=== PATIENT | female | born 1945 | race Caucasian/White ===

== ENCOUNTER 2018-01-11 08:08 | Day surgery (SDC) | payer MEDICARE, BC, SELFPAY ==
--- NOTE | 2018-01-08 15:01 | W.PIPPEYE ---
History of Present Illness Chief Complaint: Progressive decreased vision, right eye Narrative: The patient is a 71-year-old lady who presented with complaints of progressive decreased vision in her right eye. She notes significant blurry foggy and cloudy vision in the right eye compared to the left and has difficulty reading a map. On examination she was noted to have significant diffuse cortical cataract with mild nuclear cataract in the right eye with visual acuity of 20/70. The option of cataract surgery was offered to the patient and she wished to proceed. NOTE: The Chief Complaint, HPI, Past Medical History, Past Surgical History, Family History, Social History, Medications, and complete Ophthalmic Exam with detailed Assessment and Plan have already been documented in the patient's outpatient ophthalmic record and are not covered again in detail here. [facility] Medical History Abnormal EKG Anemia Arm pain Arthralgia CAD (coronary artery disease) Cataracts, bilateral Chronic neck pain DJD (degenerative joint disease) of cervical spine GERD (gastroesophageal reflux disease) History of hypothyroidism Hyperhidrosis Hyperlipidemia Hypertension Injury due to fall Irritable bowel syndrome Myoneural disorder, unspecified Osteoporosis Palpitations Tension headache Urinary retention Uterine fibroid Vitamin D deficiency Weakness Weight loss Social History Smoking/Tobacco Use Status: Never [place] [facility] [place] Home Medications Medication Instructions Recorded Confirmed Type cholecalciferol (vitamin D3) 1,000 unit PO DAILY 08/31/17 01/07/18 History cyclobenzaprine 10 mg PO PRN 08/31/17 01/07/18 History famotidine 20 mg PO BID tab-cap 08/31/17 01/07/18 History glucosamine sulfate 2KCl 2,000 mg PO DAILY 08/31/17 01/07/18 History multivitamin [Daily Multiple] 1 ea PO DAILY 08/31/17 01/07/18 History aspirin [Aspir-Low] 81 mg PO DAILY 01/07/18 01/07/18 History atorvastatin 20 mg PO DAILY 01/07/18 01/07/18 History fexofenadine [Wal-Fex Allergy] 180 mg PO DAILY PRN 01/07/18 01/07/18 History furosemide [Lasix] 20 mg PO DAILY 01/07/18 01/07/18 History metoprolol succinate 50 mg PO DAILY 01/07/18 01/07/18 History Allergies Allergy/AdvReac Type Severity Reaction Status Date / Time prochlorperazine Allergy Severe Anaphylaxsi Unverified 01/07/18 10:38 [From Compazine] s prochlorperazine edisylate Allergy Severe Anaphylaxsi Unverified 01/07/18 10:38 [From Compazine] s prochlorperazine maleate Allergy Severe Anaphylaxsi Unverified 01/07/18 10:38 [From Compazine] s codeine AdvReac Intermediate Nausea Unverified 01/07/18 10:38 Exam OCULAR EXAM:: Visual acuity at distance: Best corrected 20/60 right eye, 20/30 left eye Pupils: Pupils equal, round, and reactive without afferent pupillary defect IOP: 14 OD, 12 OS Extraocular Motility: Normal Pertinent Slit Lamp Findings: Significant for pupils dilating to 7 mm OU. 2+ diffuse cortical haze in the right eye with mild nuclear cataract. In the left eye there is a 1+ nuclear with 1+ cortical cataract. Dilated Funduscopic Examination: Disc cupping is 0.6 OU with nilesh-papillary atrophy. The optic nerves have good perfusion and normal color. The retinal vasculature is normal without significant tortuosity or abnormality. The maculas are normal in appearance with normal contour and foveal reflex appropriate for age. The peripheral retina and vitreous are normal. BRIGHTNESS ACUITY TESTING (BAT):: Off right eye 20/70 Low: 20/80 Medium: 20/100 High: 20/300 Assessment and Plan (1) Nuclear sclerotic cataract of right eye: Current visit: No Status: Acute Assessment: Visually significant cataract, right eye. Plan: Cataract extraction with intraocular lens implantation, right eye (2) Cortical cataract of right eye: Current visit: No Status: Acute Assessment: Visually significant cataract, right eye. Plan: Cataract extraction with intraocular lens implantation, right eye Note: NOTE:: The details of the planned surgery, including the risks, indications,limitations,expectations,outcome and possible complications were explained to the patient. The patient understands the complications including, but not limited to: infection, hemorrhage, posterior dislocation of the lens or nuclear fragments which may require the intervention of a vitreoretinal surgeon, possible loss of the eye, or from anesthetic complications. The patient has been made aware of the option of not having surgery, that vision following surgery may not be equal to that prior to surgery, and that the planned surgery may not achieve the intended results. Following this discussion, which the patient appeared to understand, the patient wishes to proceed with cataract surgery with lens implantation of the affected eye to improve and maximize vision.
--- NOTE | 2018-01-08 15:05 | POEE_ITS ---
History of Present Illness Chief Complaint: Progressive decreased vision, right eye Narrative: The patient is a 71-year-old lady who presented with complaints of progressive decreased vision in her right eye. She notes significant blurry foggy and cloudy vision in the right eye compared to the left and has difficulty reading a map. On examination she was noted to have significant diffuse cortical cataract with mild nuclear cataract in the right eye with visual acuity of 20/70. The option of cataract surgery was offered to the patient and she wished to proceed. NOTE: The Chief Complaint, HPI, Past Medical History, Past Surgical History, Family History, Social History, Medications, and complete Ophthalmic Exam with detailed Assessment and Plan have already been documented in the patient's outpatient ophthalmic record and are not covered again in detail here. [facility] Medical History Abnormal EKG Anemia Arm pain Arthralgia CAD (coronary artery disease) Cataracts, bilateral Chronic neck pain DJD (degenerative joint disease) of cervical spine GERD (gastroesophageal reflux disease) History of hypothyroidism Hyperhidrosis Hyperlipidemia Hypertension Injury due to fall Irritable bowel syndrome Myoneural disorder, unspecified Osteoporosis Palpitations Tension headache Urinary retention Uterine fibroid Vitamin D deficiency Weakness Weight loss Social History Smoking/Tobacco Use Status: Never [place] [facility] [place] Home Medications Medication Instructions Recorded Confirmed Type cholecalciferol (vitamin D3) 1,000 unit PO DAILY 08/31/17 01/07/18 History cyclobenzaprine 10 mg PO PRN 08/31/17 01/07/18 History famotidine 20 mg PO BID tab-cap 08/31/17 01/07/18 History glucosamine sulfate 2KCl 2,000 mg PO DAILY 08/31/17 01/07/18 History multivitamin [Daily Multiple] 1 ea PO DAILY 08/31/17 01/07/18 History aspirin [Aspir-Low] 81 mg PO DAILY 01/07/18 01/07/18 History atorvastatin 20 mg PO DAILY 01/07/18 01/07/18 History fexofenadine [Wal-Fex Allergy] 180 mg PO DAILY PRN 01/07/18 01/07/18 History furosemide [Lasix] 20 mg PO DAILY 01/07/18 01/07/18 History metoprolol succinate 50 mg PO DAILY 01/07/18 01/07/18 History Allergies Allergy/AdvReac Type Severity Reaction Status Date / Time prochlorperazine Allergy Severe Anaphylaxsi Unverified 01/07/18 10:38 [From Compazine] s prochlorperazine edisylate Allergy Severe Anaphylaxsi Unverified 01/07/18 10:38 [From Compazine] s prochlorperazine maleate Allergy Severe Anaphylaxsi Unverified 01/07/18 10:38 [From Compazine] s codeine AdvReac Intermediate Nausea Unverified 01/07/18 10:38 Exam OCULAR EXAM:: Visual acuity at distance: Best corrected 20/60 right eye, 20/30 left eye Pupils: Pupils equal, round, and reactive without afferent pupillary defect IOP: 14 OD, 12 OS Extraocular Motility: Normal Pertinent Slit Lamp Findings: Significant for pupils dilating to 7 mm OU. 2+ diffuse cortical haze in the right eye with mild nuclear cataract. In the left eye there is a 1+ nuclear with 1+ cortical cataract. Dilated Funduscopic Examination: Disc cupping is 0.6 OU with nilesh-papillary atrophy. The optic nerves have good perfusion and normal color. The retinal vasculature is normal without significant tortuosity or abnormality. The maculas are normal in appearance with normal contour and foveal reflex appropriate for age. The peripheral retina and vitreous are normal. BRIGHTNESS ACUITY TESTING (BAT):: Off right eye 20/70 Low: 20/80 Medium: 20/100 High: 20/300 Assessment and Plan (1) Nuclear sclerotic cataract of right eye: Current visit: No Status: Acute Assessment: Visually significant cataract, right eye. Plan: Cataract extraction with intraocular lens implantation, right eye (2) Cortical cataract of right eye: Current visit: No Status: Acute Assessment: Visually significant cataract, right eye. Plan: Cataract extraction with intraocular lens implantation, right eye Note: NOTE:: The details of the planned surgery, including the risks, indications, limitations,expectations,outcome and possible complications were explained to the patient. The patient understands the complications including, but not limited to: infection, hemorrhage, posterior dislocation of the lens or nuclear fragments which may require the intervention of a vitreoretinal surgeon, possible loss of the eye, or from anesthetic complications. The patient has been made aware of the option of not having surgery, that vision following surgery may not be equal to that prior to surgery, and that the planned surgery may not achieve the intended results. Following this discussion, which the patient appeared to understand, the patient wishes to proceed with cataract surgery with lens implantation of the affected eye to improve and maximize vision.
[2018-01-11 08:30] VITALS: BP 148/71; PULSE 73; RESP 16; TEMP 36.5; O2SAT 97
[2018-01-11] MEDS: Balanced Salt Soln.-PLUS 500 ML BAG (09:43)
[2018-01-11] MEDS: Povidone-Iodine Ophth 30 ML BTL (09:43)
[2018-01-11] MEDS: Lidocaine 2% Jelly 6 ML SYR (09:43)
[2018-01-11] MEDS: Lidocaine 1% Pres-Free 5 ML VIAL (09:43)
--- NOTE | 2018-01-11 10:09 | W.PM.DSUDISC ---
Discharge Plan Discharge Details Attending Provider: Sai Rosenberg Primary Care Provider: Sharmila Vidal Home Meds and New Rx's Prescriptions: No Action multivitamin [Daily Multiple] 1 EACH tablet 1 ea PO DAILY RF: 0 cyclobenzaprine 10 MG tablet 10 mg PO PRN RF: 0 famotidine 20 MG tablet 20 mg PO BID RF: 0 cholecalciferol (vitamin D3) 1,000 UNIT capsule 1,000 unit PO DAILY RF: 0 glucosamine sulfate 2KCl 1,000 MG capsule 2,000 mg PO DAILY RF: 0 aspirin [Aspir-Low] 81 mg Tablet,Delayed Release (Dr/Ec) 81 mg PO DAILY RF: 0 furosemide [Lasix] 20 mg Tablet 20 mg PO DAILY RF: 0 atorvastatin 20 mg Tablet 20 mg PO DAILY RF: 0 metoprolol succinate 50 mg Tablet Extended Release 24 Hr 50 mg PO DAILY RF: 0 fexofenadine [Wal-Fex Allergy] 180 mg Tablet 180 mg PO DAILY PRNRF: 0 Discharge Instructions Stand Alone Forms: Post-op Topical Cataract, Julia Negron (DSU) DS: Diagnosis Discharge Diagnosis (1) Nuclear sclerotic cataract of right eye: Status: Resolved (2) Cortical cataract of right eye: Status: Resolved
--- NOTE | 2018-01-11 10:09 | W.PM.OP ---
Date of service: 01/11/18 Time of Service: 10:09 Operative Note DATE OF PROCEDURE: 01/11/18 PRE-OP DIAGNOSIS: Cataract, right eye POST-OP DIAGNOSIS: same PROCEDURE: Cataract extraction using phacoemulsification with intraocular lens implant, right eye SURGEON: Sai Rosenberg ANESTHESIA: MAC (with local sub-tenon's anesthetic injection) PATHOLOGY: none sent COMPLICATIONS: None Patient was transported to: same day Patient's condition: stable Implants: Delvin and Delvin / NOE Tecnis [id number] Intraocular Lens Indications: Progressive decreased vision due to cataract, right eye Procedure Description: CATARACT SURGERY OPERATIVE REPORT PREOPERATIVE DIAGNOSIS: Nuclear/cortical cataract, right eye POSTOPERATIVE DIAGNOSIS: Same OPERATION: Cataract extraction using phacoemulsification with posterior chamber intraocular lens implant, right eye. IOL: IOL Housekeeping Department Worker/Model: Delvin & Delvin / NOE Tecnis [id number] IOL Power: +17.50 diopters IOL Serial Number: [id number] Optic Diameter: 6.0mm Haptic/Overall Diameter: 13.00mm PHACO INFO: [employer]on Vision System with OZil and Active Fluidics Cumulative Dispersed Energy (CDE): 5.71 seconds SURGEON: Sai Rosenberg MD, ROSARIO ANESTHESIA: Monitored Anesthesia Care (MAC), with local sub-tenon's anesthetic infiltration COMPLICATIONS: None SPECIMENS: None INDICATIONS FOR PROCEDURE: The patient is a 72-year old lady with history of diminished visual acuity in her right eye. She notes progressive blurred vision with current visual acuity of 20/70 in the right eye. She has a significant nuclear and cortical cataract. The option of cataract surgery was offered to the patient and she wished to proceed. PROCEDURE: The correct surgical eye was identified and marked as the right eye and the pupil was dilated in the preoperative area using mydriatics, cycloplegics, and NSAIDS (except in aspirin allergic patients). The dilated pupil size was 7.5mm. Oral sedation was administered in the form of an Imprimis MKO Melt (midazolam 3mg/ketamine 25mg/ondansetron 2mg). The patient was brought to the operating room where cardiopulmonary monitoring was instituted and surgical time-out was performed, confirming the correct operative eye and IOL power. Topical anesthesia was administered and ophthalmic povidone-iodine 5% was instilled into the conjunctival fornices. Lidocaine gel was applied to the cornea and the nilesh-ocular area was prepped with Betadine 10% solution and draped in the usual sterile fashion for intraocular surgery. Steri-strips were used to cover the lashes and lid margins and an adhesive eye drape was placed. Care was taken to isolate the lashes and lid margins under the Steri-strips and adhesive eye drape. A lid speculum was placed between the lids of the operative eye and the Joselo-Hilda operating microscope was maneuvered into position. Maris scissors were then used to make a conjunctival buttonhole approximately 6mm posterior to the limbus in the inferonasal quadrant. Blunt dissection was carried out to expose bare sclera, and a blunt-tipped sub-tenon?s anesthesia cannula was introduced and passed posteriorly along the globe where non-preserved plain lidocaine was injected into posterior sub-Tenon?s space. A sideport knife was used to make a paracentesis port at the 7:00 postion and the anterior chamber was filled with Healon GV. A 2.4mm keratome knife was used to create a half-thickness groove at the limbus and then to construct a three-plane near-clear corneal tunnel extending 2.0mm into clear cornea at the 10:00 position. A flap was raised on the anterior capsule and capsulorhexis forceps were used to complete a continuous curvilinear capsulorhexis of 5.5mm. Balanced salt solution was then used to perform cortical cleaving hydrodissection and nuclear hydrodelineation until the lens could be freely rotated within the capsular bag. The lens nucleus was then disassembled and removed within the capsular bag and iris plane using phacoemulsification. Residual cortical material was removed using the 45-degree angled silicone I/A tip with 0.3mm port. The posterior capsule was carefully polished to remove as much residual lens epithelial cells as safely possible. The capsular bag was then inflated and the anterior chamber deepened with viscoelastic. The lens implant described above was inserted into the capsular bag using the NOE [place] Injector. A Kuglen hook was used to dial the IOL into position. Residual viscoelastic was then removed first from posterior to the IOL, then from the anterior chamber using the I/A handpiece. The lens implant was noted to center nicely within the capsular bag. The incisions were stromally hydrated, and the anterior chamber was reformed using BSS. Then 0.4cc of moxifloxacin 1.5mg/ml were injected into the capsular bag and anterior chamber. The incisions were checked with a Weck spear and found to be secure. Several drops of ophthalmic povidone-iodine 5% were then applied to the eye followed by two drops of Imprimis combination moxifloxacin/dexamethasone solution. The drapes were removed and a clear plastic protective eye shield was placed over the eye. The patient was then returned to [facility] Day Surgery in stable condition.
[2018-01-11 10:38] VITALS: BP 128/78; PULSE 70; RESP 16; TEMP 36.4; O2SAT 100
== END 2018-01-11 10:56 | disposition home or self-care (01) ==
LOC: SUR 08:08
PROVIDERS: PCP Nurse Practitioner Family; Visit Provider Ophthalmology
PROC: (CPT 66984; principal; 2018-01-11 10:15)
DX: H25.811 Combined forms of age-related cataract, right eye (principal); I10 Essential (primary) hypertension
CPT/HCPCS: 66984; V2632